=== PATIENT | female | born 1990 | race Caucasian/White ===

== ENCOUNTER 2017-11-23 14:03 | Emergency (ER) | payer OTHER ==
[~2017-11-23] VITALS: Ht 157.5 cm; Wt 55.2 kg
[~2017-11-23 14:03] MED LIST: ENDOCET 5-3251 EACH PO; IBUPROFEN800 MG PO; MICRONOR0.35 MG PO; MOTRIN800 MG PO; NOHOMEMEDS; PRENATAL TABLE1 EAC3 PO; PRENATAL VITAM1 EAC3 PO; PROZAC20 MG PO; TYLENOL EXTRA500 MG PO; VICODIN,LORT1 TABLET PO
[2017-11-23 15:05] LABS: HEMATOCRIT 38.2 % (36.0-46.0); HEMOGLOBIN 13.1 G/DL (11.9-15.5); MCH 29.8 PG (29.0-34.0); MCHC 34.3 G/DL (30.0-36.0); MCV 86.8 FL (83-99); RBC DIS.WIDTH-CV 12.6 % (11.8-14.6); RBC DIS.WIDTH-SD 40.2 % (39-53)
[2017-11-23 15:10] LABS: PLATELET COUNT 206 K/uL (156-360)
[2017-11-23 15:17] LABS: ALBUMIN 4.1 g/dL (3.2-4.8); CHLORIDE 109 mEq/L (99-109); POTASSIUM 4.4 mEq/L (3.7-5.4); SODIUM 141 mEq/L (136-147)
[2017-11-23 15:19] LABS: GLUCOSE 104 mg/dL (70-99); TOTAL PROTEIN 7.3 g/dL (6.4-8.3)
[2017-11-23 15:21] LABS: TOTAL BILIRUBIN 0.4 mg/dL (0.0-1.0)
[2017-11-23 15:22] LABS: APPEARANCE SL.HAZY ((CLEAR)); BILIRUBIN NEGATIVE; BLOOD NEGATIVE; COLOR YELLOW ((YELLOW)); GLUCOSE (STRIP) NEGATIVE; KETONES NEGATIVE; LEUKOCYTES NEGATIVE; NITRITE NEGATIVE; PROTEIN (STRIP) 30; SPECIFIC GRAVITY 1.029 (1.000-1.030)
[2017-11-23 15:23] LABS: ALKALINE PHOSPHATASE 74 IU/L (3-129); CREATININE 0.9 mg/dL (0.6-1.3); GFR ESTIMATE (CALCULATED) > 59 mL/min/
[2017-11-23 15:24] LABS: UREA NITROGEN (BUN) 10 mg/dL (9-23)
[2017-11-23 15:25] LABS: AST (GOT) 19 IU/L (2-34)
[2017-11-23 15:26] LABS: ALT (GPT) 15 IU/L (3-49); LIPASE 16 U/L (1.0-51.0)
[2017-11-23 15:33] LABS: BACTERIA NONE SEEN /HPF; EPITHELIAL CELLS RARE /HPF; MUCUS 1+ /LPF; RED BLOOD CELLS 0-5 /HPF (0-5); WHITE BLOOD CELLS 0-5 /HPF (0-5)
[2017-11-23 15:34] LABS: QUANTITATIVE HCG < 4.0 MIU/ML
[2017-11-23] MEDS ORDERED: BENTYL20 MG PO (17:36)
[2017-11-23 17:44] VITALS: BP 123/71
== END 2017-11-23 17:45 | disposition home or self-care (01) ==
LOC: EME 14:03
PROVIDERS: Physician Assistant
DX: R10.10 Upper abdominal pain, unspecified (principal)
CPT/HCPCS: 76705; 80053; 81003; 83690; 84702; 85027; 99281; 99283